=== PATIENT | female | born 1970 | race Hispanic/Latino ===

== ENCOUNTER 2021-12-18 17:58 | Emergency (ER) | payer OTHER, SELFPAY ==
[2021-12-18 18:59] LABS: Hematocrit 21.9 % (36.0-45.0); Lymphocytes % 32.6 % (15.3-44.8); MCV 55.4 fL (80-100); MPV 8.3 fL (7.6-11.3); RBC Red Blood Cell Count 3.95 M/uL (3.86-4.86)
[2021-12-18 19:16] LABS: Ferritin 1.6 ng/mL (8-388)
[2021-12-18] MEDS ORDERED: NA CHLORIDE 0.9% 500 ML ONE (19:57)
[2021-12-18 21:19] LABS: Anisocytosis 1+; Blood Morphology Comment NOTED (NOT SEEN); Hypochromasia 2+; Platelet Estimate INCR; White Blood Cell Scan OK (OK)
[2021-12-18] MEDS ORDERED: PROMETHAZINE INJ 25 MG/ML AMP ONE (22:30)
[2021-12-18] MEDS ORDERED: MEPERIDINE HCL 25 MG/ML SYR ONE (22:31)
--- NOTE | 2021-12-18 23:52 | ER ---
Nurse's Notes [facility] Name: Sharri Marin Age: 51 yrs Sex: Female : 1970 Arrival Date: 12/18/2021 Time: 18:00 Bed 16 Private MD: Diagnosis: Iron deficiency anemia, unspecified Presentation: 12/18 18:16 Chief complaint: Patient states: Dr. Angelica Cartagena called and told pt and said she has jh5 low RBC's and needs a blood transfusion - pt has been SOB and fatigue x1 month and had the blood work done yesterday. Coronavirus screen: Vaccine status: Patient reports being unvaccinated. Client denies travel out of the [place] in the last 14 days. Ebola Screen: Patient negative for fever greater than or equal to 101.5 degrees Fahrenheit, and additional compatible Ebola Virus Disease symptoms Patient denies exposure to infectious person. Patient denies travel to an Ebola-affected area in the 21 days before illness onset. Initial Sepsis Screen: Does the patient meet any 2 criteria? No. Patient's initial sepsis screen is negative. Does the patient have a suspected source of infection? No. Patient's initial sepsis screen is negative. Risk Assessment: Do you want to hurt yourself or someone else? Patient reports no desire to harm self or others. 18:16 Method Of Arrival: Ambulatory [facility] 18:16 Acuity: CAPRI 3 jh5 20:09 Onset of symptoms was December 18, 2021. 1 Triage Assessment: 18:20 General: Appears in no apparent distress. comfortable, well groomed, well developed, jh5 well nourished, Behavior is calm, cooperative, appropriate for age. Pain: Denies pain. 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 - Social history:: Smoking status: Patient denies any tobacco usage or history of. Screenin:08 Abuse screen: Denies threats or abuse. Nutritional screening: No deficits noted. ke1 Tuberculosis screening: No symptoms or risk factors identified. Fall Risk None identified. Assessment: 19:13 Reassessment: hgb 6.1. vc1 22:37 Reassessment: Patient appears in no apparent distress at this time. Patient and/or ke1 family updated on plan of care and expected duration. Pain level reassessed. Patient is alert, oriented x 3, equal unlabored respirations, skin warm/dry/pink. Patient denies pain at this time. Patient states feeling better. 23:30 Reassessment: Patient appears in no apparent distress at this time. No changes from ke1 previously documented assessment. Vital Signs: 18:16 BP 134 / 85; Pulse 79; Resp 18; Temp 98.7; Pulse Ox 99% ; Weight 79.83 kg; Height 5 ft. jh5 3 in. (160.02 cm); Pain 0/10; 20:08 BP 128 / 83; Pulse 74; Resp 17; Pulse Ox 99% on R/A; Pain 0/10; ke1 23:50 BP 138 / 85; Pulse 68; Resp 18; Temp 98.1(O); Pulse Ox 99% ; Pain 0/10; ke1 18:16 Body Mass Index 31.18 (79.83 kg, 160.02 cm) jh5 ED Course: 18:00 Patient arrived in ED. rg4 18:01 Krzysztof Weiss DO is Attending Physician. ms3 18:19 Triage completed. jh5 18:20 Arm band placed on right wrist. jh5 18:48 Inserted saline lock: 20 gauge in right antecubital area, using aseptic technique. zm Blood collected. 18:48 BMP Sent. zm 18:48 Type And Screen Sent. zm 18:48 CBC with Diff Sent. zm 18:48 Iron Level Sent. zm 19:09 Attending Physician role handed off by Krzysztof Weiss DO rn 19:09 Isaac Larios MD is Attending Physician. rn 19:26 Kimberly Simon, ZAHRA is Primary Nurse. ke1 20:09 Bed in low position. Call light in reach. ke1 12/19 00:06 No provider procedures requiring assistance completed. IV discontinued. ke1 Administered Medications: No medications were administered Medication: 00:07 VIS not applicable for this client. ke1 Outcome: 12/18 23:51 Discharge ordered by . rn 12/19 00:06 Discharged to home ambulatory. ke1 Condition: good Discharge instructions given to patient. 00:07 Patient left the ED. ke1 Signatures: Isaac Larios MD MD rn Garcia, Rubi rg4 Krzysztof Weiss DO DO ms3 Kim Steve, RN RN jh5 Britney Carter RN RN vc1 Kimberly Simon RN RN ke1 Melly Estrada Corrections: (The following items were deleted from the chart) 12/18 18:53 18:48 FERRITIN+C.LAB.BRZ drawn and sent. EDMS 18:53 18:48 TRANSFERRIN SAT/IRON BINDING+C.LAB.BRZ drawn and sent. EDMS
--- NOTE | 2021-12-18 23:52 | EDPHYS ---
Physician Documentation [facility] Name: Sharri Marin Age: 51 yrs Sex: Female : 1970 Arrival Date: 12/18/2021 Time: 18:00 Bed 16 Private MD: ED Physician Isaac Larios HPI: 12/18 18:29 This 51 yrs old Female presents to ER via Ambulatory with complaints of ms3 Abnormal Lab Results. 18:29 51-year-old female with no past medical history presents from nurse practitioner yoli Pepper's office for low red blood cell count. Patient states her labs were drawn yesterday. Patient is experiencing shortness of breath. Patient denies alleviating or inciting factors. Patient denies pain at this time. Patient denies melena, bloody bowel movements, or heavy menstrual cycles.. Onset: The symptoms/episode began/occurred yesterday. Severity of symptoms: Pain is currently a 0 / 10. 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 - Social history:: Smoking status: Patient denies any tobacco usage or history of. ROS: 18:29 Constitutional: Negative for fever, and chills. Neck: Negative for injury, pain, and ms3 swelling, Cardiovascular: Negative for chest pain, and palpitations. 18:29 MS/Extremity: Negative for injury and deformity. 18:29 Respiratory: Positive for shortness of breath. 18:29 All other systems are negative. Exam: 18:29 Constitutional: This is a well developed, well nourished patient who is awake, alert, ms3 and in no acute distress. Neck: Trachea midline, no cervical lymphadenopathy. Supple, full range of motion without nuchal rigidity, or vertebral point tenderness. No Meningismus. Chest/axilla: Normal chest wall appearance and motion. Nontender with no deformity. Cardiovascular: Regular rate and rhythm with a normal S1 and S2. No gallops, murmurs, or rubs. Normal PMI, no JVD. No pulse deficits. Respiratory: Lungs have equal breath sounds bilaterally, clear to auscultation and percussion. No rales, rhonchi or wheezes noted. No increased work of breathing, no retractions or nasal flaring. Abdomen/GI: Soft, non-tender, with normal bowel sounds. No distension or tympany. No guarding or rebound. No evidence of tenderness throughout. Skin: Warm, dry with normal turgor. Normal color with no rashes, no lesions, and no evidence of cellulitis. MS/ Extremity: Pulses equal, no cyanosis. Neurovascular intact. Full, normal range of motion. Psych: Awake, alert, with orientation to person, place and time. Behavior, mood, and affect are within normal limits. Vital Signs: 18:16 BP 134 / 85; Pulse 79; Resp 18; Temp 98.7; Pulse Ox 99% ; Weight 79.83 kg; Height 5 ft. jh5 3 in. (160.02 cm); Pain 0/10; 20:08 BP 128 / 83; Pulse 74; Resp 17; Pulse Ox 99% on R/A; Pain 0/10; ke1 23:50 BP 138 / 85; Pulse 68; Resp 18; Temp 98.1(O); Pulse Ox 99% ; Pain 0/10; ke1 18:16 Body Mass Index 31.18 (79.83 kg, 160.02 cm) 5 MDM: 18:29 Differential Diagnosis anemia. ms3 18:54 Patient medically screened. ms3 19:00 Transition of care: After a detail discussion of the patient's case, care is ms3 transferred to Isaac aLrios MD. 23:49 Data reviewed: vital signs, nurses notes, lab test result(s), and as a result, I will varnisher patient. Counseling: I had a detailed discussion with the patient and/or guardian regarding: the historical points, exam findings, and any diagnostic results supporting the discharge/admit diagnosis, lab results, the need for outpatient follow up, to return to the emergency department if symptoms worsen or persist or if there are any questions or concerns that arise at home. Response to treatment: the patient's symptoms have markedly improved after treatment, and as a result, I will discharge patient. Special discussion: I discussed with the patient/guardian in detail that at this point there is no indication for admission to the hospital. It is understood, however, that if the symptoms persist or worsen the patient needs to return immediately for re-evaluation. Based on the history and exam findings, there is no indication for further emergent testing or inpatient evaluation. I discussed with the patient/guardian the need to see the primary care provider for further evaluation of the symptoms. Special discussion: Based on the history and exam findings, there is no indication for further emergent testing or inpatient evaluation. I discussed with the patient/guardian the need to see the vacuum drier tender/oncologist for further evaluation of the symptoms. ED course: Pt improved after blood transfusion, labs appear to show iron deficiency anemia, no GI bleeding, currently light period. Reports symptoms for about 1 month with exertional dyspnea. Will dc home with OTC iron medication and pcp f/u for repeat studies. . 12/18 18:29 Order name: CBC with Diff; Complete Time: 21:49 ms3 12/18 18:29 Order name: Type And Screen ms3 12/18 18:29 Order name: BMP; Complete Time: 19:27 ms3 12/18 18:37 Order name: Iron Level iw 12/18 18:52 Order name: Transferrin Sat/Iron Binding; Complete Time: 19:27 EDMS 12/18 18:52 Order name: Ferritin; Complete Time: 19:27 EDMS 12/18 19:27 Order name: Transfuse; Complete Time: 21:45 rn 12/18 19:46 Order name: Packed RBC Leukored EDMS 12/18 21:19 Order name: CBC Smear Scan; Complete Time: 21:49 EDMS Administered Medications: No medications were administered Disposition Summary: 12/18/21 23:51 Discharge Ordered Location: Home rn Problem: an ongoing problem rn Symptoms: have improved rn Condition: Stable rn Diagnosis - Iron deficiency anemia, unspecified rn Followup: rn - With: Private Physician - When: As needed - Reason: Recheck today's complaints, Re-evaluation by your physician Discharge Instructions: - Discharge Summary Sheet rn - Iron Deficiency Anemia, Adult rn - Anemia rn - Blood Transfusion, Adult rn - Iron-Rich Diet rn Forms: - Medication Reconciliation Form rn - Thank You Letter rn - Antibiotic awake overnight monitor - Prescription Opioid Use rn Signatures: Dispatcher [employer] EDMS Isaac Larios MD MD rn Sims, Marcus, DO DO ms3 Kim Steve RN RN jh5 Corrections: (The following items were deleted from the chart) 18:53 18:37 TRANSFERRIN SAT/IRON BINDING+C.LAB.BRZ ordered. EDMS EDMS 18:53 18:37 FERRITIN+C.LAB.BRZ ordered. EDMS EDMS
[2021-12-19 02:51] VITALS: O2SAT 99
[2021-12-19 02:56] VITALS: BP 138/85; TEMP 98.1
== END 2021-12-19 00:07 | disposition home or self-care (01) ==
LOC: ER 17:58
PROC: 30233N1 Transfusion of Nonautologous Red Blood Cells into Peripheral Vein, Percutaneous Approach (ICD-10-PCS; principal; 2021-12-19)
DX: D50.9 Iron deficiency anemia, unspecified (principal)
CPT/HCPCS: 36415; 80048; 82728; 83540; 84466; 85025; 86850; 86900; 86901; 99283; J2175; J2550; J7040; P9016

== ENCOUNTER 2022-04-10 15:02 | Emergency (ER) | payer SELFPAY ==
--- OUTSIDE RECORDS SUMMARY | 2022-04-10 15:06 | XMS REPORT | Continuity of Care Document ---
:1970 Author Organization [facility] t Address [address] [place] [address] Care Team Providers Name Role Phone SHAHZAD VÁZQUEZ Primary Care Physician Unavailable VASU LENNON Attending Clinician Unavailable VASU LENNON Attending Clinician Unavailable Problems Condition Condition Condition Status Onset Resolution Last Treating Co mments Source Name Details Category Date Date Treatment Clinician Date Encounter Encounter Disease Active 2021-05 Uni vers for well for well 0-05 ity of [place] exam [place] with 00 Medical routine routine Branch gynecologi gynecologi matthew exam matthew exam Menorrhagi Menorrhagi Disease Active 2021-05 U nivers a with a with 0-05 ity of regular regular 00:00: [place] cycle cycle 00 [facility] Pain Pain Disease Active 2021-05 Univers pelvic pelvic 0-05 ity of 00:00: [place] 00 [facility] History of History of Disease Active 2021-05 U nivers recent recent 0-05 ity of blood blood 00:00: [place] transfusio transfusio 00 Me dical n n Branch BMI BMI Disease Active 2021-05 Univers 32.0-32.9, 32.0-32.9, 0-05 it y of adult adult 00:00: [place] 00 [facility] Allergies, Adverse Reactions, Alerts Allergy Allergy Status Severity Reaction(s) Onset Inactive Treating Comm ents Source Name Type Date Date Clinician NO KNOWN Drug Active Univers ALLERGIE Class ity of S [facility] Social History Social Habit Start Date Stop Date Quantity Comments Source Alcohol intake 2022-02-05 2022-02-05 Ex-drinker [facility] 00:00:00 00:00:00 (finding) [facility] Exposure to 2022-01-25 2022-02-04 Not sure [facility]-CoV-2 00:00:00 16:50:00 [facility] (event) [place] Tobacco use and 2022-02-04 2022-02-04 Smokeless tobacco Un iversity of exposure 00:00:00 00:00:00 non-user [facility] Sex Ass[birth year] Universit y of 00:00:00 00:00:00 [facility] Smoking Status Start Date Stop Date Source Never smoked tobacco [facility] Medications Ordered Filled Start Stop Current Ordering Indication Dosage Frequency Signature Comments Components Source Medication Medication Date Date Medication? Clinician (SIG) Name Name No known 2021-05 No No known Unive rs medications 0-05 medication it y of 14:23: s [address] No known 2021-05 No No known Unive rs medications 0-05 medication it y of 14:23: s [address] No known 2021-05 No No known Unive rs medications 0-04 medication it y of 16:40: s [address] Vital Signs Vital Name Observation Time Observation Value Comments Source Systolic blood 2022-02-04 21:39:00 137 mm[Hg] Univer sity of pressure [facility] Diastolic blood 2022-02-04 21:39:00 76 mm[Hg] Unive rsity of pressure [facility] Heart rate 2022-02-04 21:39:00 66 /min [facility] Body temperature 2022-02-04 21:39:00 36.83 [facility]bekah [facility] 2022-02-04 21:39:00 16 /min [facility] Body height 2022-02-04 21:39:00 160 cm [facility] Body weight 2022-02-04 21:39:00 84.414 kg [facility] BMI 2022-02-04 21:39:00 32.97 kg/m2 [facility] Oxygen saturation in 2022-02-04 21:39:00 99 /min [facility] Arterial blood by [facility] Pulse oximetry Branch Procedures Procedure Date / Time Performed Performing Clinician Layo gonzalez PAP SMEAR-LIQUID 2022-02-04 21:51:00 Vasu [facility] Encounters Start End Encounter Admission Attending Care Care Encounter Source Date/Time Date/Time Type Type Clinicians Facility Department ID 2022-02-04 2022-02-04 Outpatient R SAJI VASU [facility] B [id number] [facility] 16:30:00 16:56:09 VASU LENNON [facility] 2022-02-04 2022-02-04 Office [facility] [id number] [facility] 16:30:00 16:56:09 Visit Vasu FARRELL [id number] it y of WOMEN'S [id number] [employer] [id number] [address] 2022-02-04 2022-02-04 Letter [facility] [id number] Univers 00:00:00 00:00:00 (Out) aVsu FARRELL [id number] it y of WOMEN[facility]S [id number] [employer] [phone] [address] Results This patient has no known results.
--- NOTE | 2022-04-10 21:01 | EDPHYS ---
Physician Documentation [facility] Name: Sharri Marin Age: 51 yrs Sex: Female : 1970 Arrival Date: 04/10/2022 Time: 15:03 Bed 23 Private MD: Malorie Pepper ED Physician Isaac Larios HPI: 04/10 16:14 This 51 yrs old Female presents to ER via Ambulatory with complaints of anemia.sb4 16:21 Patient is a 51 year old female who presented to the ED after routine blood work sb4 revealed anemia, hemoglobin 7.4. Dr. Villeda sent her here for 1 unit PRBC. She is asymptomatic. She states that she is on her menstrual cycle, but does not report an excessive amount of bleeding. She has required a transfusion in the past, in which she was also on her menstrual cycle. . 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 Flu vaccine is not up to date. - Social history:: Smoking status: Patient denies any tobacco usage or history of. ROS: 16:21 Constitutional: Negative for fever, chills, and weight loss, Eyes: Negative for injury, sb4 pain, redness, and discharge, ENT: Negative for injury, pain, and discharge, Cardiovascular: Negative for chest pain, palpitations, and edema, Respiratory: Negative for shortness of breath, cough, wheezing, and pleuritic chest pain, Abdomen/GI: Negative for abdominal pain, nausea, vomiting, diarrhea, and constipation, MS/Extremity: Negative for injury and deformity, Skin: Negative for injury, rash, and discoloration. 16:24 : Positive for vaginal bleeding. sb4 Exam: 16:21 Constitutional: This is a well developed, well nourished patient who is awake, alert, sb4 and in no acute distress. Head/Face: Normocephalic, atraumatic. Eyes: Pupils equal round and reactive to light, extra-ocular motions intact. Periorbital areas with no swelling, redness, or edema. ENT: Mucous membranes moist. Cardiovascular: Regular rate and rhythm with a normal S1 and S2. Respiratory: Lungs have equal breath sounds bilaterally, clear to auscultation and percussion. No rales, rhonchi or wheezes noted. No increased work of breathing, no retractions or nasal flaring. Abdomen/GI: Soft, non-tender, no distension. Skin: Warm, dry with normal turgor. Normal color with no rashes, no lesions, and no evidence of cellulitis. MS/ Extremity: Pulses equal, no cyanosis. Neurovascular intact. Full, normal range of motion. Vital Signs: 16:09 BP 138 / 80; Pulse 64; Resp 18; Temp 98.5; Pulse Ox 100% ; Weight 86.18 kg; Height 5 ap3 ft. 3 in. (160.02 cm); 17:58 BP 119 / 68; Pulse 79; Resp 17; Pulse Ox 100% on R/A; eh3 18:47 BP 125 / 79; Pulse 76; Resp 16; Temp 98.5; Pulse Ox 97% on R/A; Pain 0/10; eh3 18:52 BP 130 / 74; Pulse 72; Resp 16; Temp 98.9; Pulse Ox 97% on R/A; Pain 0/10; eh3 18:57 BP 129 / 77; Pulse 74; Resp 16; Temp 98.6; Pulse Ox 99% on R/A; Pain 0/10; eh3 19:02 BP 131 / 85; Pulse 77; Resp 16; Temp 98.4; Pulse Ox 99% on R/A; Pain 0/10; eh3 19:17 BP 126 / 86; Pulse 76; Resp 16; Temp 98.6; Pulse Ox 99% on R/A; Pain 0/10; eh3 19:47 BP 126 / 76; Pulse 80; Resp 16; Temp 98.5; Pulse Ox 99% on R/A; Pain 0/10; eh3 20:17 BP 102 / 91; Pulse 89; Resp 16; Temp 98.1; Pulse Ox 100% ; Pain 0/10; eh3 20:47 BP 111 / 70; Pulse 82; Resp 16; Temp 97.7; Pulse Ox 100% on R/A; Pain 0/10; eh3 16:09 Body Mass Index 33.66 (86.18 kg, 160.02 cm) ap3 MDM: 15:13 Patient medically screened. sb4 21:51 Data reviewed: vital signs, lab test result(s), and as a result, I will discharge sb4 patient. 04/10 16:14 Order name: Type And Screen sb4 04/10 16:14 Order name: IV Start; Complete Time: 17:51 sb4 04/10 16:25 Order name: Transfuse; Complete Time: 19:07 sb4 04/10 16:41 Order name: Packed RBC Leukored EDMS Administered Medications: No medications were administered Disposition Summary: 04/10/22 21:00 Discharge Ordered Location: Home sb4 Problem: new sb4 Symptoms: have improved sb4 Condition: Stable sb4 Diagnosis - Iron deficiency anemia secondary to blood loss (chronic) sb4 Followup: sb4 - With: - When: As needed - Reason: Recheck today's complaints, Continuance of care, Re-evaluation by your physician Followup: sb4 - With: - When: 2 - 3 days - Reason: Recheck today's complaints, Continuance of care, Re-evaluation by your physician Discharge Instructions: - Discharge Summary Sheet sb4 - Iron Deficiency Anemia, Adult sb4 - Blood Transfusion, Adult sb4 - Iron-Rich Diet sb4 Forms: - Medication Reconciliation Form sb4 - Thank You Letter sb4 - Antibiotic Education sb4 - Prescription Opioid Use sb4 Addendum: 04/13/2022 19:08 Co-signature as Attending Physician, Isaac Larios MD. r n Signatures: Dispatcher [employer] EDIsaac Gonzalez MD MD rn Prokisch, Amanda, RN RN ap3 Betsey Jung RN RN 3 Eva Schneider, CHELLY PA-Jeanette sb4 Corrections: (The following items were deleted from the chart) 04/10 16:38 16:15 CBC without Diff+H.LAB.BRZ ordered. EDCA EDMS
--- NOTE | 2022-04-10 21:01 | ER ---
Nurse's Notes [facility] Name: Sharri Marin Age: 51 yrs Sex: Female : 1970 Arrival Date: 04/10/2022 Time: 15:03 Bed 23 Private MD: Malorie Pepper Diagnosis: Iron deficiency anemia secondary to blood loss (chronic) Presentation: 04/10 16:09 Chief complaint: Patient states: she was sent by her pcp for possible anemia. patient ap3 has required a blood transfusion in December 2021. Coronavirus screen: At this time, the client does not indicate any symptoms associated with coronavirus-19. Ebola Screen: No symptoms or risks identified at this time. Initial Sepsis Screen: Does the patient meet any 2 criteria? No. Patient's initial sepsis screen is negative. Does the patient have a suspected source of infection? No. Patient's initial sepsis screen is negative. Risk Assessment: Do you want to hurt yourself or someone else? Patient reports no desire to harm self or others. Onset of symptoms is unknown. 16:09 Method Of Arrival: Ambulatory ap3 16:09 Acuity: CAPRI 3 ap3 Triage Assessment: 16:12 General: Appears comfortable, Behavior is calm, cooperative, appropriate for age. Pain: ap3 Denies pain. Neuro: Level of Consciousness is awake, alert, obeys commands, Oriented to person, place, time, situation, Gait is steady, Speech is normal. Cardiovascular: Patient's skin is warm and dry. Respiratory: Airway is patent Respiratory effort is even, unlabored. 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 Flu vaccine is not up to date. - Social history:: Smoking status: Patient denies any tobacco usage or history of. Screenin:12 Abuse screen: Denies threats or abuse. Nutritional screening: No deficits noted. ap3 Tuberculosis screening: No symptoms or risk factors identified. Fall Risk None identified. Assessment: 17:58 General: Appears in no apparent distress. comfortable, Behavior is calm, cooperative, eh3 appropriate for age. Pain: Denies pain. Neuro: Level of Consciousness is awake, alert, obeys commands, Oriented to person, place, time, situation. Cardiovascular: Capillary refill < 3 seconds Patient's skin is warm and dry. Respiratory: Airway is patent Respiratory effort is even, unlabored, Respiratory pattern is regular, symmetrical. GI: No signs and/or symptoms were reported involving the gastrointestinal system. Abdomen is round non-distended. : No signs and/or symptoms were reported regarding the genitourinary system. EENT: No signs and/or symptoms were reported regarding the EENT system. Derm: No signs and/or symptoms reported regarding the dermatologic system. Musculoskeletal: No signs and/or symptoms reported regarding the musculoskeletal system. Circulation, motion, and sensation intact. Range of motion: intact in all extremities. 19:00 Reassessment: Patient appears in no apparent distress at this time. Patient and/or 3 family updated on plan of care and expected duration. Pain level reassessed. Patient is alert, oriented x 3, equal unlabored respirations, skin warm/dry/pink. 20:00 Reassessment: Patient appears in no apparent distress at this time. Patient and/or 3 family updated on plan of care and expected duration. Pain level reassessed. Patient is alert, oriented x 3, equal unlabored respirations, skin warm/dry/pink. 20:47 Reassessment: Transfusion completed. 3 Vital Signs: 16:09 BP 138 / 80; Pulse 64; Resp 18; Temp 98.5; Pulse Ox 100% ; Weight 86.18 kg; Height 5 ap3 ft. 3 in. (160.02 cm); 17:58 BP 119 / 68; Pulse 79; Resp 17; Pulse Ox 100% on R/A; eh3 18:47 BP 125 / 79; Pulse 76; Resp 16; Temp 98.5; Pulse Ox 97% on R/A; Pain 0/10; eh3 18:52 BP 130 / 74; Pulse 72; Resp 16; Temp 98.9; Pulse Ox 97% on R/A; Pain 0/10; eh3 18:57 BP 129 / 77; Pulse 74; Resp 16; Temp 98.6; Pulse Ox 99% on R/A; Pain 0/10; eh3 19:02 BP 131 / 85; Pulse 77; Resp 16; Temp 98.4; Pulse Ox 99% on R/A; Pain 0/10; eh3 19:17 BP 126 / 86; Pulse 76; Resp 16; Temp 98.6; Pulse Ox 99% on R/A; Pain 0/10; eh3 19:47 BP 126 / 76; Pulse 80; Resp 16; Temp 98.5; Pulse Ox 99% on R/A; Pain 0/10; eh3 20:17 BP 102 / 91; Pulse 89; Resp 16; Temp 98.1; Pulse Ox 100% ; Pain 0/10; eh3 20:47 BP 111 / 70; Pulse 82; Resp 16; Temp 97.7; Pulse Ox 100% on R/A; Pain 0/10; eh3 16:09 Body Mass Index 33.66 (86.18 kg, 160.02 cm) ap3 ED Course: 15:03 Patient arrived in ED. as 15:04 Malorie Pepper is Private Physician. as 15:13 Eva Schneider PA-C is PHCP. sb4 15:13 Isaac Larios MD is Attending Physician. sb4 16:11 Triage completed. ap3 16:12 Arm band placed on right wrist. ap3 17:52 Betsey Jung, RN is Primary Nurse. eh3 17:58 Patient has correct armband on for positive identification. Bed in low position. Call eh3 light in reach. Side rails up X2. Client placed on continuous cardiac and pulse oximetry monitoring. NIBP monitoring applied. Door closed. Noise minimized. Warm blanket given. 17:58 IV is patent, with fluids infusing freely, with good blood return. eh3 19:07 Packed RBC Leukored Sent. eh3 21:00 Malorie Pepper is Referral Physician. sb4 21:00 Jaziel Ireland MD is Referral Physician. sb4 21:05 No provider procedures requiring assistance completed. IV discontinued, intact, eh3 bleeding controlled, No redness/swelling at site. Pressure dressing applied. Administered Medications: No medications were administered Medication: 21:05 VIS not applicable for this client. eh3 Outcome: 21:00 Discharge ordered by . sb4 21:05 Discharged to home ambulatory, with family. eh3 21:05 Condition: stable 21:05 Discharge instructions given to patient, Instructed on discharge instructions, follow up and referral plans. Demonstrated understanding of instructions, follow-up care. 21:06 Patient left the ED. eh3 Signatures: Linda Estrada Amanda RN RN ap3 Betsey Jung RN RN eh3 Eva Schneider, CHELLY PAAnnamarie sb4
[2022-04-10 21:38] VITALS: O2SAT 100
[2022-04-10 21:39] VITALS: BP 111/70; TEMP 97.7
== END 2022-04-10 21:06 | disposition home or self-care (01) ==
LOC: ER 15:02
PROC: 30233N1 Transfusion of Nonautologous Red Blood Cells into Peripheral Vein, Percutaneous Approach (ICD-10-PCS; principal; 2022-04-10)
DX: D50.0 Iron deficiency anemia secondary to blood loss (chronic) (principal)
CPT/HCPCS: 86850; 86900; 86901; 99283; P9016